=== PATIENT | female | born 1950 | race African-American/Black ===

== ENCOUNTER 2016-10-13 09:52 | Inpatient (IN) | payer OTHER ==
[2016-10-13] VITALS (14 sets, daily range): BP systolic 107–144; BP diastolic 25–71
[~2016-10-13] VITALS: Ht 142.2 cm; Wt 84.1 kg
[2016-10-13] MEDS ORDERED: ETOMIDATE (2MG/ML) 20ML VIAL IV ONE (10:00)
[2016-10-13] MEDS ORDERED: SUCCINYLCHOLINE CHLORIDE 20 MG/ML 10ML VIAL IV ONE (10:01)
[2016-10-13] MEDS ORDERED: MIDAZOLAM DRIP 50 mg/50mL 50 ML IV ONE (10:08)
[2016-10-13] MEDS: MIDAZOLAM DRIP 50 mg/50mL 50 ML IV SCH (10:15)
[2016-10-13] MEDS ORDERED: NOREPINEPHRINE BITARTRATE 250 ML IV ONE (10:27)
[2016-10-13 10:46] LABS: Basophils # (auto) 0 uL; Basophils % (auto) 0.2 % (0.0-2.0); CONDITION Y; Eosinophils # (auto) 0.1 uL; Eosinophils % (auto) 0.7 % (0.0-7.0); Hematocrit 29.5 % (36.0-46.0); Hemoglobin 9.4 g/dL (12.2-16.2); Lymphocytes # (auto) 1.6 uL; Lymphocytes % (auto) 10.5 % (10.0-50.0); Mean Corpuscular Hemoglobin 28.6 pg (28.0-32.0); Mean Corpuscular Hgb Conc. 31.7 g/dL (32.0-36.0); Mean Corpuscular Volume 90.2 fL (80.0-100.0); Mean Platelet Volume 8.5 fL (7.4-10.4); Monocytes # (auto) 0.4 uL; Monocytes % (auto) 2.3 % (0.0-12.0); Neutrophils # (auto) 13.2 uL; Neutrophils % (auto) 86.3 % (37.0-80.0); Platelet Count (auto) 239 10^3/uL (140-450); Red Cell Distribution Width 17.3 % (11.6-16.0); SUSPECT SEE PRINTOUT; White Blood Cell 15.3 10^3/uL (4.4-10.8)
[2016-10-13] MEDS ORDERED: SODIUM CHLORIDE 0.9% 1,000 ML IV ONE ×4 (10:52→11:45)
[2016-10-13] MEDS ORDERED: AZITHROMYCIN 500MG/D5W 250ML 250 ML IV ONE (11:00)
[2016-10-13] MEDS: NOREPINEPHRINE BITARTRATE 250 ML IV SCH (11:00)
[2016-10-13] MEDS ORDERED: cefTRIAXone 1GM/50ML D5W 50 ML IV ONE (11:00)
[2016-10-13 11:15] LABS: Albumin 1.6 g/dL (3.4-5.0); Alkaline Phosphatase 91 U/L (45-117); Anion Gap 26 (5-15); Aspartate Aminotransferase 327 U/L (15-37); BUN/Creatinine Ratio 14.4; Bilirubin, Total 0.5 mg/dL (0.2-1.0); Blood Urea Nitrogen 16 mg/dL (7-18); Calcium 8.6 mg/dL (8.5-10.1); Chloride 100 mmol/L (98-107); GFR African American 64 mL/min; GFR Non-African American 53 mL/min; Glucose 265 mg/dL (74-106); Potassium 4.7 mmol/L (3.5-5.1); Sodium 135 mmol/L (136-145); Total Protein 6.8 g/dL (6.4-8.2)
[2016-10-13 11:27] LABS: Lactic Acid w/Reflex 17.2 mmol/L (0.4-2.0)
[2016-10-13 11:30] LABS: B-Type Natriuretic Peptide 71.19 pg/mL (0-100); Carbon Dioxide 9 mmol/L (21-32)
[2016-10-13 11:31] LABS: Allen Test Yes; Base Excess -21.4 mmol/L (-2.0-2.0); Blood 02Sat 99.2 % (96-100); Blood COHb 0.3 % (0.5-1.5); Blood MetHb 0.7 % (0.0-1.5); HCO3 7.6 mmol/L (22-26.0); HHb 0.8 % (0.0-5.0); MODE VENT - A/C; O2Hb 98.2 % (94.0-97.0); PCO2 27.7 mmHg (35.0-45.0); PCO2(T) 27.7 mmHg (35.0-45.0); PO2 491.7 mmHg (80.0-100.0); PO2(T) 491.7 mmHg (80.0-100.0); Sample Type Arterial; pH 7.055 (7.350-7.450)
[2016-10-13 11:31] LABS: INR 1.59 (0.9-1.15); Partial Thromboplastin Time 35.5 sec (22.64-33.71); REFLEX LACTIC ACID YES OR NO YES
[2016-10-13 11:33] LABS: Prothrombin Time 17.4 sec (9.37-12.3)
[2016-10-13] MEDS ORDERED: SODIUM BICARBONATE 8.4 % INJ 50ML VIAL IV ONE ×2 (11:45→20:45)
[2016-10-13] MEDS ORDERED: DEXTROSE (50%) 50ML SYRG IV PRN (11:45)
[2016-10-13] MEDS ORDERED: SODIUM BICARBONATE 8.4% INJ 50ML SYRINGE IV ONE (12:00)
[2016-10-13] MEDS ORDERED: ALBUTEROL SULF 2.5 MG/0.5ML(0.5%) NEB SOLN NEB PRN (12:00)
[2016-10-13 12:03] LABS: Temperature: 24.3 C (20.0-25.0)
[2016-10-13 12:11] LABS: Amylase 39 U/L (25-115)
[2016-10-13] MEDS ORDERED: IPRATROPIUM BROM 0.5 MG/2.5ML INH SOL ONE (12:16)
[2016-10-13] MEDS ORDERED: ALBUTEROL SULF 2.5 MG/0.5ML(0.5%) NEB SOLN ONE (12:16)
[2016-10-13] MEDS ORDERED: NITROGLYCERIN 0.4 MG SL TAB SL PRN (12:30)
[2016-10-13] MEDS: ALBUTEROL SULF 2.5 MG/0.5ML(0.5%) NEB SOLN NEB SCH ×2 (12:30→18:00)
[2016-10-13] MEDS ORDERED: MORPHINE SULF INJ 2 MG/ML SYRINGE 1ML IV PRN (12:30)
[2016-10-13] MEDS: IPRATROPIUM BROM 0.5 MG/2.5ML INH SOL NEB SCH ×2 (12:30→18:00)
[2016-10-13] MEDS ORDERED: SODIUM BICARBONATE 8.4% INJ 50ML SYRINGE ONE ×2 (12:31→20:43)
[2016-10-13] MEDS: ACCU-CHEK COMFORT CURVE STRIP VI SCH ×3 (12:38→20:08)
[2016-10-13] MEDS: InsuLIN REG 1unit/0.01ml Soln (100units/ml) SC SCH ×3 (12:45→20:55)
[2016-10-13] MEDS: methylPREDNISolone SOD SUCC 40 MG/ML VL IV SCH ×2 (12:45→18:33)
[2016-10-13 13:11] LABS: Lactic Acid w/Reflex 16.8 mmol/L (0.4-2.0)
[2016-10-13 13:12] LABS: REFLEX LACTIC ACID YES OR NO NO
[2016-10-13] MEDS: SODIUM BICARBONATE 50ML VIAL 50 ML in SOD CHL 0.45% 1,000 ML IV SCH (13:27)
[2016-10-13] MEDS ORDERED: ASPI81TA27 PO (15:57)
[2016-10-13] MEDS ORDERED: METF-370 PO (15:57)
[2016-10-13] MEDS ORDERED: ATOR10TA PO (15:57)
[2016-10-13] MEDS ORDERED: LOR05T PO (15:58)
[2016-10-13] MEDS ORDERED: CETITAB PO (15:58)
[2016-10-13] MEDS ORDERED: QUET400T PO (15:58)
[2016-10-13] MEDS ORDERED: BACL10TA PO (15:59)
[2016-10-13] MEDS ORDERED: TRAZ150T79 PO (15:59)
[2016-10-13] MEDS ORDERED: VALP250S16 PO (15:59)
[2016-10-13 16:40] LABS: Urine Bilirubin Negative (Negative); Urine Color Yellow (Yellow); Urine Glucose TRACE mg/dL (Normal); Urine Hyaline Cast FEW /lpf (0 - 2); Urine Ketone TRACE (Negative); Urine Nitrite Negative (Negative); Urine RBC 34 /hpf (0 - 4); Urine Squamous Epithelial Cell FEW /hpf (<5); Urine Urobilinogen Normal (Negative); Urine pH 5.5 (5.0-8.0)
[2016-10-13 20:28] LABS: Allen Test Modified; Base Excess -18.2 mmol/L (-2.0-2.0); Blood 02Sat 92.7 % (96-100); Blood COHb 0.3 % (0.5-1.5); Blood MetHb 0.5 % (0.0-1.5); HCO3 8.7 mmol/L (22-26.0); HHb 7.2 % (0.0-5.0); MODE VENT - A/C; PCO2 24.5 mmHg (35.0-45.0); PCO2(T) 24.5 mmHg (35.0-45.0); PO2 87.3 mmHg (80.0-100.0); PO2(T) 87.3 mmHg (80.0-100.0); Room 1019-ERT; Sample Type Arterial
[2016-10-13 20:37] LABS: Urine Blood 2+ /uL (Negative)
[2016-10-14] VITALS (80 sets, daily range): BP systolic 71–146; BP diastolic 32–102
[2016-10-14] MEDS: methylPREDNISolone SOD SUCC 40 MG/ML VL IV SCH ×4 (00:07→17:16)
[2016-10-14] MEDS: ACCU-CHEK COMFORT CURVE STRIP VI SCH ×6 (00:07→20:10)
[2016-10-14] MEDS ORDERED: SODIUM BICARBONATE 8.4% INJ 50ML SYRINGE ONE ×3 (00:07→06:03)
[2016-10-14] MEDS: SODIUM BICARBONATE 50ML VIAL 50 ML in SOD CHL 0.45% 1,000 ML IV SCH (00:07)
[2016-10-14] MEDS: ALBUTEROL SULF 2.5 MG/0.5ML(0.5%) NEB SOLN NEB SCH ×4 (00:16→18:51)
[2016-10-14] MEDS: IPRATROPIUM BROM 0.5 MG/2.5ML INH SOL NEB SCH ×4 (00:16→18:51)
[2016-10-14] MEDS: MIDAZOLAM DRIP 50 mg/50mL 50 ML IV SCH ×4 (01:10→19:59)
[2016-10-14] MEDS ORDERED: SODIUM BICARBONATE 8.4 % INJ 50ML VIAL IV ONE ×3 (02:30→17:15)
[2016-10-14] MEDS ORDERED: PROPOFOL 100 ML IV ONE (02:32)
[2016-10-14] MEDS: PROPOFOL 100 ML IV SCH ×3 (02:35→21:37)
[2016-10-14] MEDS: InsuLIN REG 1unit/0.01ml Soln (100units/ml) SC SCH ×6 (03:48→20:00)
[2016-10-14 03:58] LABS: CONDITION Y; Hematocrit 28.9 % (36.0-46.0); Hemoglobin 9.1 g/dL (12.2-16.2); Mean Corpuscular Hemoglobin 28.3 pg (28.0-32.0); Mean Corpuscular Hgb Conc. 31.4 g/dL (32.0-36.0); Mean Corpuscular Volume 90.2 fL (80.0-100.0); Mean Platelet Volume 9.9 fL (7.4-10.4); Platelet Count (auto) 168 10^3/uL (140-450); Red Cell Distribution Width 16.8 % (11.6-16.0); SUSPECT SEE PRINTOUT; White Blood Cell 15.7 10^3/uL (4.4-10.8)
[2016-10-14] MEDS ORDERED: D5W/SOD CHL 0.45% 1,000 ML IV SCH (04:00)
[2016-10-14 04:10] LABS: Promyelocytes % 0; Reactive Lymphocytes 0
[2016-10-14 04:24] LABS: Albumin 1.4 g/dL (3.4-5.0); BUN/Creatinine Ratio 18.3; Calcium 7.8 mg/dL (8.5-10.1); Potassium 4.4 mmol/L (3.5-5.1)
[2016-10-14 04:33] LABS: Bilirubin, Total 0.7 mg/dL (0.2-1.0); Total Protein 6.1 g/dL (6.4-8.2)
[2016-10-14 05:07] LABS: Metamyelocytes % 18; Myelocytes % 8
[2016-10-14 05:08] LABS: Anisocytosis Slight; Platelet Estimate Adequate
[2016-10-14 07:19] LABS: Allen Test Modified; Blood COHb 0.4 % (0.5-1.5); Blood MetHb 0.4 % (0.0-1.5); HHb 8.9 % (0.0-5.0); MODE VENT - A/C; O2Hb 90.3 % (94.0-97.0); PCO2 25.2 mmHg (35.0-45.0); PCO2(T) 25.2 mmHg (35.0-45.0); PO2 82.4 mmHg (80.0-100.0); PO2(T) 82.4 mmHg (80.0-100.0); Sample Type Arterial; pH 7.169 (7.350-7.450)
[2016-10-14] MEDS ORDERED: SODIUM BICARBONATE 50ML VIAL 150 ML in SOD CHL 0.45% 1,000 ML IV SCH (08:45)
[2016-10-14] MEDS: SODIUM BICARBONATE 50ML VIAL 150 ML in D5W 5% 1,000 ML IV SCH ×2 (08:59→20:26)
[2016-10-14] MEDS ORDERED: SODIUM BICARBONATE 8.4% INJ 50ML SYRINGE IV ONE (09:00)
[2016-10-14] MEDS: cefTRIAXone 1GM/50ML D5W 50 ML IV SCH (09:00)
[2016-10-14] MEDS: NOREPINEPHRINE BITARTRATE 250 ML IV SCH ×3 (09:03→20:27)
[2016-10-14] MEDS ORDERED: LEVOFLOXACIN 500MG 100 ML IV SCH (10:00)
[2016-10-14 10:40] LABS: Allen Test Modified; Base Excess -17.5 mmol/L (-2.0-2.0); Blood 02Sat 90.7 % (96-100); Blood COHb 0.1 % (0.5-1.5); Blood MetHb 0.5 % (0.0-1.5); HHb 9.2 % (0.0-5.0); MODE VENT - A/C; O2Hb 90.2 % (94.0-97.0); PCO2 29.3 mmHg (35.0-45.0); PCO2(T) 26.8 mmHg (35.0-45.0); PO2 80.4 mmHg (80.0-100.0); PO2(T) 70.5 mmHg (80.0-100.0); Sample Type Arterial; pH 7.149 (7.350-7.450)
[2016-10-14] MEDS: AZITHROMYCIN 500MG/D5W 250ML 250 ML IV SCH (11:53)
[2016-10-14] MEDS: PANTOPRAZOLE SODIUM 40 MG/10 ML VIAL IV SCH (12:23)
[2016-10-14] MEDS: ENOXAPARIN SOD 40 MG/0.4 ML SYRINGE SC SCH (12:23)
[2016-10-14] MEDS: fentaNYL Drip 2500mCg/250mlNS 250 ML IV SCH (12:23)
[2016-10-14 15:43] LABS: Allen Test Yes; Base Excess -22.5 mmol/L (-2.0-2.0); Blood 02Sat 89.9 % (96-100); Blood COHb 0.4 % (0.5-1.5); Blood MetHb 0.7 % (0.0-1.5); HCO3 7.2 mmol/L (22-26.0); MODE VENT - A/C; O2Hb 88.9 % (94.0-97.0); PCO2 29.7 mmHg (35.0-45.0); PCO2(T) 29.7 mmHg (35.0-45.0); PO2 87.3 mmHg (80.0-100.0); PO2(T) 87.3 mmHg (80.0-100.0); Sample Type Arterial
[2016-10-14] MEDS ORDERED: [UNRECOGNIZED DRUG - OTHER] IV ONE (16:30)
[2016-10-14] MEDS ORDERED: SODIUM CHL 0.9% IV ONE (16:30)
[2016-10-14] MEDS: VASOPRESSIN 50 UNITS in SODIUM CHL 0.9% 247.5 ML IV SCH (16:30)
[2016-10-14] MEDS ORDERED: SODIUM CHLORIDE 0.9% 500 ML IV ONE (16:30)
[2016-10-14] MEDS ORDERED: HYDROCORTISONE SOD SUCC 100 MG/2ML INJ VIAL IV ONE (16:30)
[2016-10-14] MEDS ORDERED: EPINEPHrine HCL 250 ML IV ONE (17:53)
[2016-10-14] MEDS: EPINEPHrine HCL INJECTION 4 MG in D5W 5% 250 ML IV SCH (18:08)
[2016-10-14 19:09] LABS: Allen Test Modified; Base Excess -20.8 mmol/L (-2.0-2.0); Blood 02Sat 89.1 % (96-100); Blood COHb 0.1 % (0.5-1.5); Blood MetHb 0.6 % (0.0-1.5); HCO3 8.7 mmol/L (22-26.0); HHb 10.8 % (0.0-5.0); MODE VENT - A/C; O2Hb 88.5 % (94.0-97.0); PCO2 33.4 mmHg (35.0-45.0); PCO2(T) 33.4 mmHg (35.0-45.0); PO2 80.8 mmHg (80.0-100.0); PO2(T) 80.8 mmHg (80.0-100.0); Sample Type Arterial; pH 7.035 (7.350-7.450)
[2016-10-14] MEDS ORDERED: SODIUM BICARBONATE 8.4 % INJ 50ML VIAL IV STA ×2 (19:15→22:51)
[2016-10-14 22:45] LABS: Allen Test Modified; Base Excess -20.6 mmol/L (-2.0-2.0); Blood 02Sat 80.5 % (96-100); Blood COHb 0.3 % (0.5-1.5); Blood MetHb 0.6 % (0.0-1.5); HCO3 8.9 mmol/L (22-26.0); HHb 19.3 % (0.0-5.0); MODE VENT - A/C; O2Hb 79.8 % (94.0-97.0); PCO2 33.7 mmHg (35.0-45.0); PCO2(T) 33.7 mmHg (35.0-45.0); PO2 65.1 mmHg (80.0-100.0); PO2(T) 65.1 mmHg (80.0-100.0); Sample Type Arterial; pH 7.038 (7.350-7.450)
[2016-10-14 22:47] LABS: Lactic Acid w/Reflex 38.7 mmol/L (0.4-2.0)
[2016-10-14 23:05] LABS: REFLEX LACTIC ACID YES OR NO YES
[2016-10-15] VITALS (22 sets, daily range): BP systolic 88–155; BP diastolic 48–92
[2016-10-15] MEDS: methylPREDNISolone SOD SUCC 40 MG/ML VL IV SCH ×3 (00:09→11:49)
[2016-10-15] MEDS: ACCU-CHEK COMFORT CURVE STRIP VI SCH ×4 (00:09→12:00)
[2016-10-15] MEDS: MIDAZOLAM DRIP 50 mg/50mL 50 ML IV SCH ×3 (00:14→07:57)
[2016-10-15] MEDS: ALBUTEROL SULF 2.5 MG/0.5ML(0.5%) NEB SOLN NEB SCH ×3 (00:37→11:49)
[2016-10-15] MEDS: IPRATROPIUM BROM 0.5 MG/2.5ML INH SOL NEB SCH ×3 (00:37→11:49)
[2016-10-15] MEDS: NOREPINEPHRINE BITARTRATE 250 ML IV SCH ×2 (00:39→05:43)
[2016-10-15] MEDS: PHENYLEPHRINE INJ 20 MG in SODIUM CHL 0.9% 250 ML IV SCH ×3 (02:20→10:40)
[2016-10-15] MEDS: InsuLIN REG 1unit/0.01ml Soln (100units/ml) SC SCH ×4 (04:00→12:00)
[2016-10-15] MEDS: PROPOFOL 100 ML IV SCH (04:15)
[2016-10-15 04:30] LABS: CONDITION Y; DEFINITIVE SEE PRINTOUT; Hematocrit 29.4 % (36.0-46.0); Hemoglobin 9.2 g/dL (12.2-16.2); Mean Corpuscular Hemoglobin 30.3 pg (28.0-32.0); Mean Corpuscular Hgb Conc. 31.2 g/dL (32.0-36.0); Mean Platelet Volume 10.3 fL (7.4-10.4); Platelet Count (auto) 176 10^3/uL (140-450); Red Cell Distribution Width 18.9 % (11.6-16.0); SUSPECT SEE PRINTOUT
[2016-10-15 04:39] LABS: White Blood Cell 42.3 10^3/uL (4.4-10.8)
[2016-10-15 04:40] LABS: Albumin 1.1 g/dL (3.4-5.0); Calcium 6.7 mg/dL (8.5-10.1); Reactive Lymphocytes 0
[2016-10-15 05:04] LABS: Lactic Acid w/Reflex 43.2 mmol/L (0.4-2.0)
[2016-10-15 05:16] LABS: REFLEX LACTIC ACID YES OR NO YES
[2016-10-15 05:19] LABS: BUN/Creatinine Ratio 14.1
[2016-10-15 05:21] LABS: Potassium 5.7 mmol/L (3.5-5.1)
[2016-10-15] MEDS ORDERED: VASOPRESSIN 20 UNIT/ML ONE (05:44)
[2016-10-15 05:45] LABS: Metamyelocytes % 12; Myelocytes % 5; Promyelocytes % 3
[2016-10-15 05:46] LABS: Giant Platelets Few; Platelet Estimate Adequate; Tear Drop Cells FEW
[2016-10-15 05:47] LABS: Anisocytosis Slight
[2016-10-15] MEDS: VASOPRESSIN 50 UNITS in SODIUM CHL 0.9% 247.5 ML IV SCH (05:50)
[2016-10-15 06:04] LABS: Allen Test Yes; Base Excess -23.8 mmol/L (-2.0-2.0); Blood 02Sat 75.4 % (96-100); Blood COHb 0.3 % (0.5-1.5); Blood MetHb 0.8 % (0.0-1.5); HCO3 6.6 mmol/L (22-26.0); HHb 24.3 % (0.0-5.0); IE RATIO 1.1.6; MODE VENT - A/C; O2Hb 74.6 % (94.0-97.0); PCO2 29.9 mmHg (35.0-45.0); PCO2(T) 29.9 mmHg (35.0-45.0); PIP 42; Sample Type Arterial; Spont Vt 559; pH 6.962 (7.350-7.450)
[2016-10-15] MEDS ORDERED: SODIUM BICARBONATE 8.4% INJ 50ML SYRINGE ONE (06:13)
[2016-10-15] MEDS ORDERED: SODIUM BICARBONATE 8.4% INJ 50ML SYRINGE IV ONE (06:55)
[2016-10-15] MEDS ORDERED: SODIUM BICARBONATE 8.4 % INJ 50ML VIAL IV ONE (07:00)
[2016-10-15] MEDS: cefTRIAXone 1GM/50ML D5W 50 ML IV SCH (08:32)
[2016-10-15] MEDS ORDERED: SODIUM BICARBONATE 50ML VIAL 150 ML in D5W 5% 1,000 ML IV SCH (08:59)
[2016-10-15] MEDS: AZITHROMYCIN 500MG/D5W 250ML 250 ML IV SCH (09:24)
[2016-10-15] MEDS: ENOXAPARIN SOD 40 MG/0.4 ML SYRINGE SC SCH (09:24)
[2016-10-15] MEDS: PANTOPRAZOLE SODIUM 40 MG/10 ML VIAL IV SCH (09:24)
[2016-10-15] MEDS ORDERED: EPINEPHrine HCL 250 ML IV ONE (10:50)
[2016-10-15] MEDS: EPINEPHrine HCL INJECTION 4 MG in D5W 5% 250 ML IV SCH (11:03)
[2016-10-15] MEDS: fentaNYL Drip 2500mCg/250mlNS 250 ML IV SCH (11:53)
[2016-10-17] MEDS ORDERED: PNEUMOCOCCAL VACC POLYS 25 MCG/0.5 ML VIAL IM ONE (09:00)
== END 2016-10-15 17:53 | disposition expired | DRG 871 ==
LOC: ER 09:52 → TELE 09:53 → ICU WEST 22:39
PROVIDERS: ADMIT Internal Medicine; ATTEND Internal Medicine Pulmonary Disease
PROC: 05H533Z Insertion of Infusion Device into Right Subclavian Vein, Percutaneous Approach (ICD-10-PCS; principal; 2016-10-13)
PROC: 0BH17EZ Insertion of Endotracheal Airway into Trachea, Via Natural or Artificial Opening (ICD-10-PCS; 2016-10-13)
PROC: 5A1945Z Respiratory Ventilation, 24-96 Consecutive Hours (ICD-10-PCS; 2016-10-13)
DX: A41.50 Gram-negative sepsis, unspecified (principal); J96.00 Acute respiratory failure, unspecified whether with hypoxia or hypercapnia; K72.00 Acute and subacute hepatic failure without coma; R65.21 Severe sepsis with septic shock; G92 Toxic encephalopathy; J15.0 Pneumonia due to Klebsiella pneumoniae; E87.0 Hyperosmolality and hypernatremia; I69.354 Hemiplegia and hemiparesis following cerebral infarction affecting left non-dominant side; J44.0 Chronic obstructive pulmonary disease with (acute) lower respiratory infection; N17.9 Acute kidney failure, unspecified; N18.3 Chronic kidney disease, stage 3 (moderate); E11.22 Type 2 diabetes mellitus with diabetic chronic kidney disease; E11.65 Type 2 diabetes mellitus with hyperglycemia; E88.09 Other disorders of plasma-protein metabolism, not elsewhere classified; F03.90 Unspecified dementia, unspecified severity, without behavioral disturbance, psychotic disturbance, mood disturbance, and anxiety; G40.909 Epilepsy, unspecified, not intractable, without status epilepticus; Z66 Do not resuscitate; Z79.82 Long term (current) use of aspirin; Z79.899 Other long term (current) drug therapy
CPT/HCPCS: 31500; 36415; 36556; 36600; 51702; 70450; 71010; 71250; 74176; 80053; 81001; 82150; 82805; 82962; 83036; 83605; 83690; 83880; 84484; 85007; 85025; 85027; 85610; 85730; 87040; 87070; 87077; 87081; 87086; 87186; 87205; 93005; 94002; 94003; 94640; 96365; 96368; 96375; 99291; C9113; J0171; J0330; J0696; J1815; J2250; J2704; J3010; J3490; J7060